=== PATIENT | male | born 2000 ===

== ENCOUNTER → 2024-08-16 | Outpatient (REF) | payer OTHER ==
[2024-08-16 09:03] LABS: SEMEN APPEARANCE OPAQUE (OPAQUE); SEMEN VISCOSITY LIQUID (LIQUID); SEMEN VOLUME 1.5 ml (2.0-5.0); SEMEN pH 8.5 (7.0-8.0)
[2024-08-16 09:04] LABS: SPERM CONCENTRATION 182.2 M/ml (>=15.0); TOTAL PROGRESSIVE SPERM 121.9 M/Ejac.; WBC CONCENTRATION <=1 M/ml (<=1 M/ml)
== END ==
LOC: M LAB REF 08:55
PROVIDERS: ATTEND Physician Assistant
DX: Z31.41 Encounter for fertility testing (principal); N46.9 Male infertility, unspecified